=== PATIENT | male | born 1960 | race Caucasian/White ===

== ENCOUNTER 2019-04-09 03:15 | Emergency (ER) | payer OTHER ==
[~2019-04-09] VITALS: Ht 172.7 cm; Wt 63.5 kg
[~2019-04-09 03:15] MED LIST: ACTOS30 MG PO; BENZTROPINE ME0.5 MG PO; BRIN20TA PO; BUPROPION HYDR300 M1 PO; CLONAZEPAM0.5 M2 PO; CLONAZEPAM2 M1 PO; CLOZAPINE100 MG PO; COLACE100 MG PO; DEPAKOTE ER500 MG PO; DUCODYL5 MG PO; GLIPIZIDE10 M2 PO; GLUCOTROL10 MG PO; GLYBURIDE5 MG PO; HUMALOG100 U/ML SC; KLONOPIN2 M1 PO; LANTUS100 U/ML SC; LITHIUM CARBON450 M1 PO; METFORMIN HCL1000 MG PO; METFORMIN1000 MG PO; OMEPRAZOLE D/R20 MG PO; ONCE-DAILY WEL150 MG PO; RESTORIL15 MG PO; REXULTI4 MG PO; RISPERDAL2 M1 PO; SEROQUEL400 M1 PO; SEROQUEL400 MG PO; SIMVASTATIN40 MG PO; TRAZODONE150 MG PO; VIBRAMYCIN100 MG PO; VITAMIN D50000 I3 PO; WELLBUTRIN XL300 MG PO; XANAX1 MG PO; ZESTRIL2.5 MG PO
== END 2019-04-09 05:30 | disposition other institution (70) ==
LOC: ED 03:15
DX: S01.112A Laceration without foreign body of left eyelid and periocular area, initial encounter (principal); E11.9 Type 2 diabetes mellitus without complications; K21.9 Gastro-esophageal reflux disease without esophagitis; E78.00 Pure hypercholesterolemia, unspecified; Z88.0 Allergy status to penicillin; Z88.8 Allergy status to other drugs, medicaments and biological substances; Z79.899 Other long term (current) drug therapy; Z79.4 Long term (current) use of insulin; W05.0XXA Fall from non-moving wheelchair, initial encounter; Y93.89 Activity, other specified; Y92.128 Other place in nursing home as the place of occurrence of the external cause; Y99.8 Other external cause status

== ENCOUNTER 2021-08-16 22:44 | Emergency (ER) | payer OTHER ==
[~2021-08-16] VITALS: Ht 170.1 cm; Wt 61.2 kg
[2021-08-16 23:45] LABS: BILIRUBIN Negative (Negative); BLOOD Negative (Negative); CLARITY Clear (Clear); COLOR Yellow (Yellow); GLUCOSE Negative (Negative); KETONE 1+ (Negative); LEUKO ESTERASE Trace (Negative); NITRITE Negative (Negative)
[2021-08-16 23:48] LABS: BASO # 0.1 10*3/uL (0.0-0.1); BASO % 0.6 % (0.0-1.0); EOS # 0.1 10*3/uL (0.0-0.4); EOS % 0.8 % (1.0-4.0); HEMATOCRIT 37.2 % (42.0-52.0); LYMPH # 2.5 10*3/uL (1.3-4.4); MEAN CELL VOLUME 90.7 fl (80.0-94.0); MEAN CORPUSCULAR HGB CONC 33.1 g/dl (33.0-37.0); MEAN PLATELET VOLUME 9.4 fl (9.6-12.3); MONO # 1.1 10*3/uL (0.1-1.0); MONO % 7.8 % (3.0-9.0); NEUT % 72.4 % (47.0-73.0); PLATELET COUNT AUTOMATED 269 10*3/uL (130-400); RED CELL DISTRI WIDTH 13.8 % (0-14.5); WHITE BLOOD COUNT 13.8 10*3/uL (4.8-10.8)
[2021-08-16 23:57] LABS: URINE AMPHETAMINES < 1000 (1000ng/ml); URINE BARBITURATES < 200 (200ng/ml); URINE BENZODIAZEPINES < 200 (200ng/ml); URINE CANNABINOIDS (THC) < 50 (50ng/ml); URINE COCAINE < 300 (300ng/ml); URINE METHADONE < 300 (300ng/ml); URINE OPIATES < 300 (300ng/ml)
[2021-08-17 00:02] LABS: CREATININE 1.94 mg/dL (0.70-1.30); POTASSIUM 5.4 mmol/L (3.5-5.1); TOTAL PROTEIN 7.6 gm/dL (6.4-8.2)
[2021-08-17 00:03] LABS: URINE PHENCYCLIDINE < 25 (25ng/ml)
[2021-08-17 00:04] LABS: BACTERIA TRACE
== END 2021-08-17 01:25 | disposition home or self-care (01) ==
LOC: ED 22:44
PROVIDERS: Internal Medicine
DX: Z00.00 Encounter for general adult medical examination without abnormal findings (principal); Z88.0 Allergy status to penicillin; Z88.8 Allergy status to other drugs, medicaments and biological substances; Z98.890 Other specified postprocedural states